=== PATIENT | male | born 1970 | race Caucasian/White ===

== ENCOUNTER 2025-02-17 14:29 | Outpatient (CLI) | payer BC, SELFPAY ==
[2025-02-17 16:24] LABS: Total Triiodothyronine (T3) 2.93 NG/ML (0.82-1.58)
[2025-02-20 09:19] LABS: Thyroid Peroxidase Antibodies 823 IU/mL (<9)
== END 2025-02-17 14:30 | disposition home or self-care (01) ==
DX: E05.90 Thyrotoxicosis, unspecified without thyrotoxic crisis or storm (principal)
CPT/HCPCS: 36415; 84439; 84445; 84480; 86800